=== PATIENT | female | born 1985 | race Caucasian/White ===

== ENCOUNTER 2018-05-31 22:42 | Emergency (ER) | payer OTHER ==
[~2018-05-31] VITALS: Ht 167.6 cm; Wt 93.6 kg
[2018-05-31 22:52] VITALS: BP 135/85
[2018-05-31] MEDS ORDERED: ONDANSETRON ODT 4 MG ONE (23:07)
[2018-05-31] MEDS ORDERED: HYDROcodone/APAP 5/325 TABLET ONE (23:07)
[2018-05-31] MEDS ORDERED: ONDANSETRON ODT 4 MG PO ONE (23:30)
[2018-05-31] MEDS ORDERED: HYDROcodone/APAP 5/325 TABLET PO ONE (23:30)
== END 2018-06-01 00:09 | disposition home or self-care (01) ==
LOC: ED 23:30
DX: S92.354A Nondisplaced fracture of fifth metatarsal bone, right foot, initial encounter for closed fracture (principal); Z88.8 Allergy status to other drugs, medicaments and biological substances; X50.1XXA Overexertion from prolonged static or awkward postures, initial encounter; Y93.89 Activity, other specified; Y92.009 Unspecified place in unspecified non-institutional (private) residence as the place of occurrence of the external cause; Y99.8 Other external cause status
CPT/HCPCS: 29515; 73630; 99284; Q0162